=== PATIENT | female | born 1960 | race Caucasian/White ===

== ENCOUNTER 2016-07-10 15:41 | Inpatient (IN) | payer BC ==
--- NOTE | 2016-07-10 16:48 | PDOC ---
History of Present Illness - General Chief Complaint: Hemoptysis Stated Complaint: COUGHING BLOOD Time Seen by Provider: 07/10/16 16:14 History Source: Patient Exam Limitations: No Limitations - History of Present Illness Initial Comments: 07/10/16 16:50 Patient is a 55 year old female with no PMHx who presents to the ED for hemoptysis that occurred today around 15:30 after work. Patient states she's had a lingering cough for the last 3-4 years but when she coughed this time she reports it was different and that it felt warm. When she looked at her napkin it was filled with blood. She reports the blood measured a quarter of a cup and it happened two more times. Patient states she had a fever five days ago and has been around sick contacts. Her son had cold symptoms, which resolved. 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 She denies any recent travel and reports her immunizations are up to date. Patient also reports she had a Chest x-ray done 4 years ago, which revealed a nodule and never followed up on. Her last PPD test was 20 years ago. Patient was born in [place] and moved to [place] in 1977. She denies shortness of breath, chest pain, palpitations She denies fever, chills, nausea, vomiting She denies headaches, dizziness, loss of consciousness She denies dysuria, frequency, hematuria PMHx: None PSHx: None Meds: None Allergies: NKDA Social: Works as a teacher in [employer]. Denies alcohol, drugs, and smoking. Lives with and two sons. Family history: Hepatitis- parents PCP: Dr. Lentz Past History - Past Medical History Allergies/Adverse Reactions: Allergies Allergy/AdvReac Type Severity Reaction Status Date / Time No Known Allergies Allergy Verified 07/10/16 15:55 Home Medications: Ambulatory Orders Cefuroxime Axetil [Ceftin -] 500 mg PO Q12H #10 tablet 07/13/16 Other medical history: denies - Immunization History Immunization Up to Date: Yes - Psycho/Social/Smoking Cessation Hx Anxiety: No Suicidal Ideation: No Smoking History: Never smoked Information on smoking cessation initiated: No Hx Alcohol Use: No Drug/Substance Use Hx: No Substance Use Type: None Review of Systems - Review of Systems Constitutional: No: Chills, Diaphoresis, Fever, Loss of Appetite, Night Sweats, Unintentional Wgt. Loss, Unexplained wgt Loss HEENTM: No: Blurred Vision, Double Vision, Nose Pain, Nose Congestion, Throat Pain, Throat Swelling Respiratory: Yes: Cough, Hemoptysis. No: Orthopnea, Shortness of Breath, SOB with Exertion, SOB at Rest, Wheezing Cardiac (ROS): No: Chest Pain, Edema, Irregular Heart Rate, Lightheadedness, Palpitations, Syncope, Chest Tightness ABD/GI: No: Blood Streaked Bowels, Constipated, Diarrhea, Nausea, Poor Fluid Intake, Rectal Bleeding, Vomiting, Indigestion, Abdominal cramping : No: Burning, Dysuria, Discharge, Frequency, Flank Pain, Hematuria Musculoskeletal: No: Back Pain, Joint Pain Integumentary: No: Bruising, Dryness, Erythema, Flushing Neurological: No: Headache, Numbness, Paresthesia, Tingling, Tremors, Weakness, Dizziness Endocrine: No: Excessive Sweating, Flushing, Intolerance to Cold, Intolerance to Heat Hematologic/Lymphatic: No: Anemia, Blood Clots, Easy Bleeding, Easy Bruising *Physical Exam - Vital Signs Last Vital Signs Temp Pulse Resp BP Pulse Ox 98.3 F 82 20 147/92 97 07/10/16 15:56 07/10/16 15:56 07/10/16 15:56 07/10/16 15:56 07/10/16 15:56 - Physical Exam General Appearance: Yes: Other (Awake, alert, oriented, and in no acute distress. Emotional and crying ) HEENT: positive: Normal ENT Inspection, Normal Voice, TMs Normal, Pharynx Normal. negative: Tonsillar Exudate, Tonsillar Erythema Neck: positive: Trachea midline, Normal Thyroid. negative: Carotid bruit, Lymphadenopathy (R), Lymphadenopathy (L) Respiratory/Chest: positive: Lungs Clear, Normal Breath Sounds Cardiovascular: positive: Regular Rhythm, Regular Rate, S1, S2 Gastrointestinal/Abdominal: positive: Normal Bowel Sounds, Soft. negative: Distended, Guarding, Rebound, Tenderness Musculoskeletal: positive: Normal Inspection, CVA Tenderness Extremity: positive: Normal Capillary Refill, Normal Inspection, Normal Range of Motion Integumentary: positive: Normal Color, Dry, Warm Neurologic: positive: Fully Oriented, Alert, Normal Mood/Affect, Normal Response , Motor Strength 5/5 Heart Score/ECG Review - ECG Impressions Comment:: 07/10/16 20:06 NSR @76 BPM, (+) incomplete right bundle branch block, (-) ST-T elevations ED Treatment Course - LABORATORY CBC & Chemistry Diagram: 07/11/16 08:30 07/11/16 08:30 - RADIOLOGY Radiology Studies Ordered: Category Date Time Status CHEST X-RAY PORTABLE* [RAD] Stat Radiology 07/10/16 16:46 Ordered Chest X-Ray Result: No Infiltrates Medical Decision Making - Medical Decision Making 07/10/16 16:55 Patient is a 55 year old female with no PMHx who presents to the ED complaining of three episodes of hemoptysis of about a quarter of a cup of blood that began today around 15:30. Differential Diagnosis include but not limited to Tuberculosis, Malignancy, PE, GI bleed, Sophie Garber tear. ED Course and Treatment: -CBC -CMP -Cardiac Profile with Troponin -Coagulation -Type and Screen -U/A -EKG -Chest x-ray -Pulmonology consult 07/10/16 19:14 -Chest x-ray negative -Labs wnl -Chest CTA ordered -Will sign off case to Dr. Camargo *DC/Admit/Observation/Transfer Diagnosis at time of Disposition: Hemoptysis Pneumonia Qualifiers: Pneumonia type: due to unspecified organism Laterality: right Lung location: middle lobe of lung Qualified Code(s): J18.9 - Pneumonia, unspecified organism - Discharge Dispostion Disposition: HOME Condition at time of disposition: Stable - Prescriptions
--- NOTE | 2016-07-10 16:53 | PDOC ---
Attending Attestation - Resident Resident Name: Catie Partidaeen - ED Attending Attestation I have performed the following: I have examined & evaluated the patient, The case was reviewed & discussed with the resident, I agree w/resident's findings & plan, Exceptions are as noted - HPI HPI: 07/10/16 16:51 55 year old female with no past medical history presents to the emergency department for 3 discrete episodes of hemoptysis that was bright red in color. The last 5 days, the patient reports having tactile fevers and coughing which he attributes as an upper respiratory infection secondary to her son being sick. Denies any recent travels. Denies prior history of pulmonary embolism or DVT. Denies unilateral calf swelling pain. Denies smoking history. Denies TB risk factors. Pt had a lung nodules on a chest xray years ago but did not follow up. - Physicial Exam PE: 07/10/16 16:52 GENERAL: Awake, alert, and fully oriented, in no acute distress. HEAD: No signs of trauma EYES: PERRLA, EOMI, sclera anicteric, conjunctiva clear ENT: Auricles normal inspection, hearing grossly normal, nares patent, oropharynx clear without exudates. NECK: Normal ROM, supple, no lymphadenopathy, JVD, or masses LUNGS: Breath sounds equal, clear to auscultation bilaterally. No wheezes, and no crackles HEART: Regular rate and rhythm, normal S1 and S2, no murmurs, rubs or gallops ABDOMEN: Soft, nontender, normoactive bowel sounds. No guarding, no rebound. No masses EXTREMITIES: Normal range of motion, no edema. No clubbing or cyanosis. No cords, erythema, or tenderness NEUROLOGICAL: Cranial nerves II through XII grossly intact. Normal speech, normal gait SKIN: Warm, Dry, normal turgor, no rashes or lesions noted. - Medical Decision Making 07/10/16 16:52 Differential includes URI, malignancy, pulmonary embolism, TB. Will need labs including coags. Chest xray, ECG. CTA to r/o PE. Case was discussed with Dr. Harrington, who will see patient in the morning. Admission to the hospital for further workup and for observation for further bleeding. 07/10/16 18:13 ECG 18:10 NSR 76, incomplete RBBB, no std/amelia, normal axis, normal axis, QTC 443 msec
[2016-07-10 17:37] LABS: URINE APPEARANCE CLEAR; URINE BILIRUBIN NEGATIVE (NEGATIVE); URINE BLOOD NEGATIVE (NEGATIVE); URINE COLOR YELLOW; URINE GLUCOSE (UA) NEGATIVE (NEGATIVE); URINE KETONE NEGATIVE (NEGATIVE); URINE NITRITE NEGATIVE (NEGATIVE); URINE PROTEIN NEGATIVE (NEGATIVE); URINE UROBILINOGEN NEGATIVE E.U./dl (0.2-1.0)
[2016-07-10 17:37] LABS: BASOPHIL 0.3 % (0-2.0); EOSINOPHIL 0.3 % (0-4.5); MCH 26.5 pg (25.7-33.7); MCHC 32.3 g/dl (32.0-36.0); MEAN PLT VOLUME 7.7 fl (7.5-11.1); NEUTROPHILS 57.3 % (42.8-82.8); PLATELET COUNT 322 K/MM3 (134-434); RDW 12.6 % (11.6-15.6); WHITE BLOOD COUNT 6.2 K/mm3 (4.0-10.0)
[2016-07-10 17:41] LABS: URINE LEUK ESTERASE TRACE (NEGATIVE)
[2016-07-10 17:43] LABS: URINE BACTERIA RARE /hpf (NONE SEEN); URINE MUCUS FEW; URINE RBC 1 /hpf (0-3); URINE WBC 11 /hpf (3-5)
[2016-07-10 17:49] LABS: INR 1.13 (0.82-1.09); PROTHROMBIN TIME (PATIENT) 12.5 SEC (9.98-11.88)
[2016-07-10 17:52] LABS: ACTIVATED PTT 36.2 SECONDS (26.9-34.4)
[2016-07-10 18:00] LABS: ANION GAP 11 (8-16); BILIRUBIN,TOTAL 0.5 mg/dL (0.2-1.0); CO2 26 mmol/L (21-32); CREATININE 0.7 mg/dL (0.55-1.02); GLUCOSE,RANDOM 84 mg/dL (74-106); SGOT/AST 17 U/L (15-37); SGPT/ALT 20 U/L (12-78); TOT PROT 7.7 g/dl (6.4-8.2)
[2016-07-10 18:02] LABS: ALK PHOS 69 U/L (45-117); TROPONIN I < 0.02 ng/ml (0.00-0.05)
[2016-07-10] MEDS ORDERED: AZITHROMYCIN IVPB 500 MG in DEXTROSE 5%-WATER - 250 ML IVPB ONE (22:05)
[2016-07-10] MEDS ORDERED: CEFTRIAXONE 1 GM in DEXTROSE 5%-WATER - 50 ML IVPB ONE (22:05)
[2016-07-10] MEDS ORDERED: AZITHROMYCIN IVPB 250 ML IVPB ONE (22:14)
[2016-07-10] MEDS ORDERED: CEFTRIAXONE 50 ML ONE (22:14)
--- NOTE | 2016-07-10 22:14 | PDOC ---
*Physical Exam - Vital Signs Last Vital Signs Temp Pulse Resp BP Pulse Ox 98.3 F 82 20 147/92 97 07/10/16 15:56 07/10/16 15:56 07/10/16 15:56 07/10/16 15:56 07/10/16 15:56 ED Treatment Course - LABORATORY CBC & Chemistry Diagram: 07/10/16 16:59 07/10/16 16:59 - ADDITIONAL ORDERS Additional order review: Laboratory Results 07/10/16 07/10/16 07/10/16 17:19 17:19 17:19 INR 1.13 PTT (Actin FS) 36.2 H Sodium Potassium Chloride Carbon Dioxide Anion Gap BUN Creatinine Creat Clearance w eGFR Random Glucose Calcium Total Bilirubin AST ALT Alkaline Phosphatase Creatine Kinase Troponin I Total Protein Albumin Urine Color Yellow Urine Appearance Clear Urine pH 5.0 Ur Specific [place] 1.018 Urine Protein Negative Urine Glucose (UA) Negative Urine Ketones Negative Urine Blood Negative Urine Nitrite Negative Urine Bilirubin Negative Urine Urobilinogen Negative Ur Leukocyte Esterase Trace H Urine RBC 1 Urine WBC 11 Ur Epithelial Cells Moderate Urine Bacteria Rare Urine Mucus Few Blood Type O POSITIVE Antibody Screen Negative 07/10/16 07/10/16 17:00 16:59 INR PTT (Actin FS) Sodium 143 Potassium 4.1 Chloride 106 Carbon Dioxide 26 Anion Gap 11 BUN 12 Creatinine 0.7 Creat Clearance w eGFR > 60 Random Glucose 84 Calcium 9.0 Total Bilirubin 0.5 AST 17 ALT 20 Alkaline Phosphatase 69 Creatine Kinase 62 Troponin I < 0.02 Total Protein 7.7 Albumin 4.0 Urine Color Urine Appearance Urine pH Ur Specific [place] Urine Protein Urine Glucose (UA) Urine Ketones Urine Blood Urine Nitrite Urine Bilirubin Urine Urobilinogen Ur Leukocyte Esterase Urine RBC Urine WBC Ur Epithelial Cells Urine Bacteria Urine Mucus Blood Type O POSITIVE Antibody Screen 07/10/16 16:59 RBC 4.39 MCV 82.0 MCHC 32.3 RDW 12.6 MPV 7.7 Neutrophils % 57.3 Lymphocytes % 35.3 Monocytes % 6.8 Eosinophils % 0.3 Basophils % 0.3 - RADIOLOGY Chest X-Ray Result: No Infiltrates Medical Decision Making - Medical Decision Making 07/10/16 22:14 Chest xray and labs reviewed. No acute findings. CT scan of chest shows NO PE but does show RML PNA. Noted to have 4.5 mm R sided lung nodule. Patient given copy of results and is aware to repeat chest imaging in 3 to 6 months for the nodule. Given the hemoptysis, I'm going to admit the patient for observation and to ensure she doesn't open up with more bleeding. Will give CAP coverage. Case discussed with Dr. Stallings who accepts the patient to med/surg. *DC/Admit/Observation/Transfer Diagnosis at time of Disposition: Hemoptysis Pneumonia Qualifiers: Pneumonia type: due to unspecified organism Laterality: right Lung location: middle lobe of lung Qualified Code(s): J18.9 - Pneumonia, unspecified organism - Discharge Dispostion Admit: Yes - Referrals Referrals: Farideh Lentz MD [Primary Care Provider] -
--- NOTE | 2016-07-10 22:34 | HP ---
<Nohemi Stallings - Last Filed: 07/10/16 22:34> Problem List - Problem (1) Hemoptysis Code(s): R04.2 - HEMOPTYSIS (2) Pneumonia Code(s): J18.9 - PNEUMONIA, UNSPECIFIED ORGANISM Qualifiers: Pneumonia type: due to unspecified organism Laterality: right Lung location: middle lobe of lung Qualified Code(s): J18.9 - Pneumonia, unspecified organism Visit type - Emergency Visit Emergency Visit: Yes Care time: The patient presented to the Emergency Department on the above date and was hospitalized for further evaluation of their emergent condition. - New Patient This patient is new to me today: Yes Date on this admission: 07/10/16 - Critical Care Critical Care patient: No <Michelle Fong - Last Filed: 07/11/16 02:24> CHIEF COMPLAINT: Hemoptysis PCP: Dr. Lentz HISTORY OF PRESENT ILLNESS: The patient is a 55 yo F who presented to the ED with hemoptysis that occurred today. The patient reports 4 bloody vomiting episodes prior to evaluation. Patient states she had a chronic cough for the past 3-4 years but when she coughed today she noticed blood. Recently, the patient reports to cold symptoms that resolved 5 days ago with fever. She admits to sick contacts (son and co- workers). Patient will be admitted for evaluation of community acquired pneumonia. PMHx- Sinusitis and post nasal drip. 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 Family History: Hepatitis Allergies No Known Allergies Allergy (Verified 07/10/16 15:55) HOME MEDICATIONS: Medication Instructions Recorded NK [No Known Home Medication] 07/10/16 REVIEW OF SYSTEMS CONSTITUTIONAL: Absent: fever, chills, diaphoresis, generalized weakness, malaise, loss of appetite, weight change HEENT: Absent: rhinorrhea, nasal congestion, throat pain, throat swelling, difficulty swallowing, mouth swelling, ear pain, eye pain, visual changes CARDIOVASCULAR: Absent: chest pain, syncope, palpitations, irregular heart rate, lightheadedness , peripheral edema RESPIRATORY: hemoptysis, cough Absent: shortness of breath, dyspnea with exertion, orthopnea, wheezing, stridor GASTROINTESTINAL: Absent: abdominal pain, abdominal distension, nausea, vomiting, diarrhea, constipation, melena, hematochezia GENITOURINARY: Absent: dysuria, frequency, urgency, hesitancy, hematuria, flank pain, genital pain MUSCULOSKELETAL: Absent: myalgia, arthralgia, joint swelling, back pain, neck pain SKIN: Absent: rash, itching, pallor HEMATOLOGIC/IMMUNOLOGIC: Absent: easy bleeding, easy bruising, lymphadenopathy, frequent infections ENDOCRINE: Absent: unexplained weight gain, unexplained weight loss, heat intolerance, cold intolerance NEUROLOGIC: Absent: headache, focal weakness or paresthesias, dizziness, unsteady gait, seizure, mental status changes, bladder or bowel incontinence PSYCHIATRIC: Absent: anxiety, depression, suicidal or homicidal ideation, hallucinations. PHYSICAL EXAMINATION Vital Signs - 24 hr 07/10/16 15:56 Temperature 98.3 F Pulse Rate 82 Respiratory 20 Rate Blood Pressure 147/92 O2 Sat by Pulse 97 Oximetry (%) GENERAL: Awake, alert, and fully oriented, in no acute distress. HEAD: Normal with no signs of trauma. EYES: Pupils equal, round and reactive to light, extraocular movements intact, sclera anicteric, conjunctiva clear. No lid lag. EARS, NOSE, THROAT: Ears normal, nares patent, oropharynx clear without exudates. Moist mucous membranes. NECK: Normal range of motion, supple with Mild L cervical lymphadenopathy, JVD, or masses. LUNGS: Breath sounds equal, clear to auscultation bilaterally. No wheezes, and no crackles. No accessory muscle use. HEART: Regular rate and rhythm, normal S1 and S2 without murmur, rub or gallop. ABDOMEN: Soft, nontender, not distended, normoactive bowel sounds, no guarding, no rebound, no masses. No hepatomegaly or splenomegaly. MUSCULOSKELETAL: Normal range of motion at all joints. No bony deformities or tenderness. No CVA tenderness. UPPER EXTREMITIES: 2+ pulses, warm, well-perfused. No cyanosis. No clubbing. Cap refill <2 seconds. No peripheral edema. LOWER EXTREMITIES: 2+ pulses, warm, well-perfused. No calf tenderness. No peripheral edema. NEUROLOGICAL: Cranial nerves II-XII intact. Normal speech. Gait not observed. PSYCHIATRIC: Cooperative. Good eye contact. Appropriate mood and affect. SKIN: Warm, dry, normal turgor, no rashes or lesions noted. Laboratory Results - last 24 hr 07/10/16 07/10/16 07/10/16 16:59 16:59 17:00 WBC 6.2 RBC 4.39 Hgb 11.6 Hct 36.0 MCV 82.0 MCHC 32.3 RDW 12.6 Plt Count 322 MPV 7.7 Neutrophils % 57.3 Lymphocytes % 35.3 Monocytes % 6.8 Eosinophils % 0.3 Basophils % 0.3 INR PTT (Actin FS) Sodium 143 Potassium 4.1 Chloride 106 Carbon Dioxide 26 Anion Gap 11 BUN 12 Creatinine 0.7 Creat Clearance w eGFR > 60 Random Glucose 84 Calcium 9.0 Total Bilirubin 0.5 AST 17 ALT 20 Alkaline Phosphatase 69 Creatine Kinase 62 Troponin I < 0.02 Total Protein 7.7 Albumin 4.0 Urine Color Urine Appearance Urine pH Ur Specific [place] Urine Protein Urine Glucose (UA) Urine Ketones Urine Blood Urine Nitrite Urine Bilirubin Urine Urobilinogen Ur Leukocyte Esterase Urine RBC Urine WBC Ur Epithelial Cells Urine Bacteria Urine Mucus Blood Type O POSITIVE Antibody Screen 07/10/16 07/10/16 07/10/16 17:19 17:19 17:19 WBC RBC Hgb Hct MCV MCHC RDW Plt Count MPV Neutrophils % Lymphocytes % Monocytes % Eosinophils % Basophils % INR 1.13 PTT (Actin FS) 36.2 H Sodium Potassium Chloride Carbon Dioxide Anion Gap BUN Creatinine Creat Clearance w eGFR Random Glucose Calcium Total Bilirubin AST ALT Alkaline Phosphatase Creatine Kinase Troponin I Total Protein Albumin Urine Color Yellow Urine Appearance Clear Urine pH 5.0 Ur Specific [place] 1.018 Urine Protein Negative Urine Glucose (UA) Negative Urine Ketones Negative Urine Blood Negative Urine Nitrite Negative Urine Bilirubin Negative Urine Urobilinogen Negative Ur Leukocyte Esterase Trace H Urine RBC 1 Urine WBC 11 Ur Epithelial Cells Moderate Urine Bacteria Rare Urine Mucus Few Blood Type O POSITIVE Antibody Screen Negative ASSESSMENT/PLAN: The patient is a 55 yo F with a PMHx of post nasal drip, sinusitis and will be admitted for evaluation of community acquired pneumonia. 1. ) CAPNA r/o Influenza - Get rapid IN A &B - Robitussin - Tylenol Q6 - Repeat CBC and BMP in the AM - Normal Saline 125 cc/hr 2.) COPD - Stable - Refer to pulmonology as outpatient 3.) 4.5 mm R upper lobe nodule on Chest CTA - Repeat CT Scan in 6-12 months Documentation prepared by Michelle Fong, acting as emergency medical technician basic for Nohemi Stallings MD.
[2016-07-10] MEDS ORDERED: ACETAMINOPHEN 325 MG TABLET (FP) PO PRN (22:36)
[2016-07-10] MEDS ORDERED: guaiFENesin 200 MG/10 ML 10 ML UNIT-DOSE CUPS PO PRN (22:38)
[2016-07-10] MEDS: SODIUM CHLORIDE 1,000 ML IV SCH (22:43)
[2016-07-11 04:47] VITALS: BMI 22.0
[2016-07-11 09:16] LABS: MCH 27.4 pg (25.7-33.7); MCHC 33.4 g/dl (32.0-36.0); MEAN CELL VOLUME 82.2 fl (80-96); MEAN PLT VOLUME 7.6 fl (7.5-11.1); PLATELET COUNT 254 K/MM3 (134-434); RDW 12.7 % (11.6-15.6); WHITE BLOOD COUNT 4.8 K/mm3 (4.0-10.0)
[2016-07-11 09:40] LABS: CALCIUM 8.6 mg/dL (8.5-10.1); CREATININE 0.7 mg/dL (0.55-1.02)
--- NOTE | 2016-07-11 13:34 | PN ---
Progress Note (short form) - Note Progress Note: PULMONARY CONSULTATION DICTATED 07/11/15 IMP HEMOPTYSIS RML PNEUMONIA BRONCHIECTASIS RUL NODULE PLAN IV ANTIBIOTICS SPUTUM CULTURE QUANTIFY HEMOPTYSIS F/U CHEST CT 4-6 WKS TO DOCUMENT RESOLUTION OF INFILTRATES DR CHRISTIANSEN Problem List - Problems (1) Hemoptysis Code(s): R04.2 - HEMOPTYSIS (2) Pneumonia Code(s): J18.9 - PNEUMONIA, UNSPECIFIED ORGANISM Qualifiers: Pneumonia type: due to unspecified organism Laterality: right Lung location: middle lobe of lung Qualified Code(s): J18.9 - Pneumonia, unspecified organism (3) Bronchiectasis Code(s): J47.9 - BRONCHIECTASIS, UNCOMPLICATED (4) Pulmonary nodule Code(s): R91.1 - SOLITARY PULMONARY NODULE
[2016-07-11] MEDS: AZITHROMYCIN IVPB 250 ML IVPB SCH (14:08)
--- NOTE | 2016-07-11 15:42 | CONS ---
PULMONARY CONSULTATION DATE OF CONSULTATION: 07/11/2016 REFERRING PHYSICIAN: HISTORY OF PRESENT ILLNESS: The patient is a 55-year-old white female without any significant past medical history, a non-smoker, who came to [facility] with a complaint of hemoptysis. The patient states that for approximately a week or so, she has been having intermittent fevers and coughing which she attributed to an upper respiratory tract infection. She did not seek medical attention. Yesterday, while on the train ride home from work, she had an episode of coughing. She states that during the episode, she felt senior clinical consultant the chest and coughed up about half a cup of bright red blood. She has had two other subsequent episodes, one while in the emergency room. She was admitted to the floor for further management. She had a CT scan of the chest performed which revealed no evidence of pulmonary emboli but showed a right upper lobe infiltrate with some bronchiectatic changes. She denies any history of pneumonia in the past although she states she had pertussis as a child. She denies any recent travel. There is no history of occupational exposure to chemicals or fumes. She denies any night sweats or weight loss. As stated before, she said she has had fever for the past week or so. She denies any previous history of hemoptysis. She is a non-smoker but does have a history of second-hand smoke exposure. There is no history of DVT or PE in the past. PAST MEDICAL HISTORY: Past medical history is otherwise unremarkable. PAST SURGICAL HISTORY: Benign. CURRENT MEDICATIONS: 1. Guaifenesin. 2. Saline. REVIEW OF SYSTEMS: Positive cough. Positive for hemoptysis. No chest pain, no palpitations. Positive fever. No chills. No GI complaints. PHYSICAL EXAM: General: The patient is a well-developed, well-nourished female, awake, alert, in no acute distress. Vital Signs: She is currently afebrile. Blood pressure is 111/66. Respiratory rate is 18. Heart rate is 67. HEENT: Head is normocephalic, atraumatic. Neck: Supple. Heart: Regular, S1, S2. Chest has a few crackles in the right mid-lung field. Abdomen: Soft. Bowel sounds positive. Extremities: No cyanosis or edema. LABS: WBC is 4.8, hemoglobin 10.8, hematocrit 32.3, platelet count 254,000. INR is 1.13, BUN 9, creatinine 0.7. RADIOGRAPHIC FINDINGS: Chest CT: There is no evidence of pulmonary emboli. There appear to be some bronchiectatic changes in the right middle lobe as well as some infiltrate in the right middle lobe. There is also a 4.5-mm nodule in the right upper lobe. IMPRESSION: 1. Pneumonia, right middle lobe. 2. Hemoptysis, most likely secondary to pneumonia. 3. Bronchiectasis. 4. Right upper lobe nodule. PLAN: 1. Broad-spectrum antibiotics. 2. Bronchodilator p.r.n. 3. Supplemental O2. 4. Sputum C & S. 5. Cold agglutinins. 6. Legionella antigen 7. Try to obtain the patient's old records to see if there is any change in the right upper lobe. 8. Also, follow up pulmonary nodule over the next 24 months to document stability. 9. Obtain followup chest CT in approximately 6 weeks to document resolution of infiltrates. MANOHAR CHRISTIANSEN M.D. [id number]
--- NOTE | 2016-07-11 16:34 | PN ---
Physical Exam: SUBJECTIVE: Patient seen and examined Patient is feeling better, with no acute distress. OBJECTIVE: Vital Signs Temperature 98.0 F 07/11/16 18:40 Pulse Rate 77 07/11/16 18:40 Respiratory Rate 18 07/11/16 10:00 Blood Pressure 108/69 07/11/16 18:40 O2 Sat by Pulse Oximetry (%) 98 07/11/16 10:00 GENERAL: The patient is awake, alert, and fully oriented, in no acute distress. HEAD: Normal with no signs of trauma. EYES: PERRL, extraocular movements intact, sclera anicteric, conjunctiva clear. No ptosis. ENT: Ears normal, nares patent, oropharynx clear without exudates, moist mucous membranes. NECK: Trachea midline, full range of motion, supple. LUNGS: Breath sounds equal, clear to auscultation bilaterally, no wheezes, no crackles, no accessory muscle use. HEART: Regular rate and rhythm, S1, S2 without murmur, rub or gallop. ABDOMEN: Soft, nontender, nondistended, normoactive bowel sounds, no guarding, no rebound, no hepatosplenomegaly, no masses. EXTREMITIES: 2+ pulses, warm, well-perfused, no edema. NEUROLOGICAL: Cranial nerves II through XII grossly intact. Normal speech, gait not observed. PSYCH: Normal mood, normal affect. SKIN: Warm, dry, normal turgor, no rashes or lesions noted CBCD WBC 4.8 K/mm3 (4.0-10.0) 07/11/16 08:30 RBC 3.93 M/mm3 (3.60-5.2) 07/11/16 08:30 Hgb 10.8 GM/dL (10.7-15.3) 07/11/16 08:30 Hct 32.3 % (32.4-45.2) L 07/11/16 08:30 MCV 82.2 fl (80-96) 07/11/16 08:30 MCHC 33.4 g/dl (32.0-36.0) 07/11/16 08:30 RDW 12.7 % (11.6-15.6) 07/11/16 08:30 Plt Count 254 K/MM3 (134-434) D 07/11/16 08:30 MPV 7.6 fl (7.5-11.1) 07/11/16 08:30 CMP Sodium 144 mmol/L (136-145) 07/11/16 08:30 Potassium 3.7 mmol/L (3.5-5.1) 07/11/16 08:30 Chloride 109 mmol/L (98-107) H 07/11/16 08:30 Carbon Dioxide 29 mmol/L (21-32) 07/11/16 08:30 Anion Gap 6 (8-16) L 07/11/16 08:30 BUN 9 mg/dL (7-18) D 07/11/16 08:30 Creatinine 0.7 mg/dL (0.55-1.02) 07/11/16 08:30 Creat Clearance w eGFR > 60 (>60) 07/10/16 16:59 Random Glucose 97 mg/dL (74-106) 07/11/16 08:30 Calcium 8.6 mg/dL (8.5-10.1) 07/11/16 08:30 Total Bilirubin 0.5 mg/dL (0.2-1.0) 07/10/16 16:59 AST 17 U/L (15-37) 07/10/16 16:59 ALT 20 U/L (12-78) 07/10/16 16:59 Alkaline Phosphatase 69 U/L (45-117) 07/10/16 16:59 Total Protein 7.7 g/dl (6.4-8.2) 07/10/16 16:59 Albumin 4.0 g/dl (3.4-5.0) 07/10/16 16:59 CARDIAC ENZYMES Creatine Kinase 62 IU/L (26-192) 07/10/16 16:59 Troponin I < 0.02 ng/ml (0.00-0.05) 07/10/16 16:59 Active Medications Generic Name Dose Route Start Last Admin Trade Name Freq PRN Reason Stop Dose Admin Acetaminophen 650 mg 07/10/16 22:36 Tylenol - PO Q6H PRN FEVER OR PAIN Guaifenesin 10 ml 07/10/16 22:38 07/11/16 02:13 Robitussin - PO 10 ml Q6H PRN Administration COUGH Sodium Chloride 1,000 mls @ 125 mls/hr 07/10/16 22:45 07/10/16 22:43 Normal Saline - IV 125 mls/hr ASDIR TAYLOR Administration Ceftriaxone Sodium 50 mls @ 100 mls/hr 07/11/16 13:45 Rocephin 1gm Ivpb (Pre-Docked) IVPB DAILY TAYLOR Azithromycin 250 mls @ 250 mls/hr 07/11/16 14:00 07/11/16 14:08 Zithromax 500mg Ivpb (Pre-Docked) IVPB 250 mls/hr DAILY TAYLOR Administration ASSESSMENT/PLAN: The patient is a 55 yo F with a PMHx of post nasal drip, sinusitis and will be admitted for evaluation of community acquired pneumonia. # Acute CAP , with negative Influenza AB, the rapid one , Robitussin prn, Tylenol Q6 - Repeat CBC and BMP in the AM , Normal Saline 125 cc/hr, ON IV Rocephin/ zithromax continue presented with Hemoptysis #COPD Stable will refer her to pulmonology as outpatient # 4.5 mm R upper lobe nodule on Chest CTA: Repeat CT Scan in 6-12 months DVT Px: early ambulations, SCDs. No heparin since presented with Hemoptysis Visit type - Emergency Visit Emergency Visit: Yes ED Registration Date: 07/10/16 Care time: The patient presented to the Emergency Department on the above date and was hospitalized for further evaluation of their emergent condition. - New Patient This patient is new to me today: Yes Date on this admission: 07/11/16 - Critical Care Critical Care patient: No
[2016-07-11] MEDS: CEFTRIAXONE 50 ML IVPB SCH (17:06)
[2016-07-11] MEDS: SODIUM CHLORIDE 1,000 ML IV SCH (21:39)
--- NOTE | 2016-07-11 23:41 | EKG ---
Test Reason : Blood Pressure : / mmHG Vent. Rate : 076 BPM Atrial Rate : 076 BPM P-R Int : 142 ms QRS Dur : 098 ms QT Int : 394 ms P-R-T Axes : 078 047 062 degrees QTc Int : 443 ms NORMAL SINUS RHYTHM INCOMPLETE RIGHT BUNDLE BRANCH BLOCK BORDERLINE ECG NO PREVIOUS ECGS AVAILABLE Confirmed by ANGELINA MEDELLIN MD ([id number]) on 07/11/2016 11:40:46 PM Referred By: Confirmed By:ANGELINA MEDELLIN MD
[2016-07-12] MEDS: CEFTRIAXONE 50 ML IVPB SCH (10:13)
[2016-07-12] MEDS: AZITHROMYCIN IVPB 250 ML IVPB SCH (10:13)
--- NOTE | 2016-07-12 10:50 | PN ---
Progress Note (short form) - Note Progress Note: Patient is comfortable , no further hemoptysis, tolerating diet with no acute distress. Vital Signs Temperature 97.8 F 07/12/16 05:32 Pulse Rate 60 07/12/16 05:32 Respiratory Rate 18 07/12/16 05:32 Blood Pressure 112/66 07/12/16 05:32 O2 Sat by Pulse Oximetry (%) 98 07/12/16 02:00 GENERAL: The patient is awake, alert, and fully oriented, in no acute distress. HEAD: Normal with no signs of trauma. EYES: PERRL, extraocular movements intact, sclera anicteric, conjunctiva clear. No ptosis. ENT: Ears normal, nares patent, oropharynx clear without exudates, moist mucous membranes. NECK: Trachea midline, full range of motion, supple. LUNGS: decreased breath sounds at the basis , no wheezes, no crackles, no accessory muscle use. HEART: Regular rate and rhythm, S1, S2 without murmur, rub or gallop. ABDOMEN: Soft, nontender, nondistended, normoactive bowel sounds, no guarding, no rebound, no hepatosplenomegaly, no masses. EXTREMITIES: 2+ pulses, warm, well-perfused, no edema. NEUROLOGICAL: Cranial nerves II through XII grossly intact. Normal speech, gait not observed. PSYCH: Normal mood, normal affect. SKIN: Warm, dry, normal turgor, no rashes or lesions noted CBCD WBC 4.8 K/mm3 (4.0-10.0) 07/11/16 08:30 RBC 3.93 M/mm3 (3.60-5.2) 07/11/16 08:30 Hgb 10.8 GM/dL (10.7-15.3) 07/11/16 08:30 Hct 32.3 % (32.4-45.2) L 07/11/16 08:30 MCV 82.2 fl (80-96) 07/11/16 08:30 MCHC 33.4 g/dl (32.0-36.0) 07/11/16 08:30 RDW 12.7 % (11.6-15.6) 07/11/16 08:30 Plt Count 254 K/MM3 (134-434) D 07/11/16 08:30 MPV 7.6 fl (7.5-11.1) 07/11/16 08:30 CMP Sodium 144 mmol/L (136-145) 07/11/16 08:30 Potassium 3.7 mmol/L (3.5-5.1) 07/11/16 08:30 Chloride 109 mmol/L (98-107) H 07/11/16 08:30 Carbon Dioxide 29 mmol/L (21-32) 07/11/16 08:30 Anion Gap 6 (8-16) L 07/11/16 08:30 BUN 9 mg/dL (7-18) D 07/11/16 08:30 Creatinine 0.7 mg/dL (0.55-1.02) 07/11/16 08:30 Creat Clearance w eGFR > 60 (>60) 07/10/16 16:59 Random Glucose 97 mg/dL (74-106) 07/11/16 08:30 Calcium 8.6 mg/dL (8.5-10.1) 07/11/16 08:30 Total Bilirubin 0.5 mg/dL (0.2-1.0) 07/10/16 16:59 AST 17 U/L (15-37) 07/10/16 16:59 ALT 20 U/L (12-78) 07/10/16 16:59 Alkaline Phosphatase 69 U/L (45-117) 07/10/16 16:59 Total Protein 7.7 g/dl (6.4-8.2) 07/10/16 16:59 Albumin 4.0 g/dl (3.4-5.0) 07/10/16 16:59 CARDIAC ENZYMES Creatine Kinase 62 IU/L (26-192) 07/10/16 16:59 Troponin I < 0.02 ng/ml (0.00-0.05) 07/10/16 16:59 Current Medications Generic Name Dose Route Start Last Admin Trade Name Freq PRN Reason Stop Dose Admin Acetaminophen 650 mg 07/10/16 22:36 Tylenol - PO Q6H PRN FEVER OR PAIN Guaifenesin 10 ml 07/10/16 22:38 07/11/16 02:13 Robitussin - PO 10 ml Q6H PRN Administration COUGH Sodium Chloride 1,000 mls @ 125 mls/hr 07/10/16 22:45 07/11/16 21:39 Normal Saline - IV 125 mls/hr ASDIR TAYLOR Administration Ceftriaxone Sodium 50 mls @ 100 mls/hr 07/11/16 13:45 07/12/16 10:13 Rocephin 1gm Ivpb (Pre-Docked) IVPB 100 mls/hr DAILY TAYLOR Administration Azithromycin 250 mls @ 250 mls/hr 07/11/16 14:00 07/12/16 10:13 Zithromax 500mg Ivpb (Pre-Docked) IVPB 250 mls/hr DAILY TAYLOR Administration Medication Instructions Recorded NK [No Known Home Medication] 07/10/16 Assessment and Plan: This patient is a 55 yo F with a PMHx of post nasal drip, sinusitis and will be admitted for evaluation of community acquired pneumonia. # Acute CAP on IV antibiotic Rocephin and zithromax ; one more day of IV antibiotic then will change to po in am and possibel discharge in am , with negative Influenza AB, the rapid one , Robitussin prn, Tylenol Q6 ,Normal Saline 125 cc/hr continue , presented with Hemoptysis. #COPD Stable will refer her to pulmonology as outpatient # 4.5 mm R upper lobe nodule on Chest CTA: Repeat CT Scan in 6-12 months; follow up with Pulmonary. DVT Px: early ambulations, SCDs. No heparin since presented with Hemoptysis Visit type - Emergency Visit Emergency Visit: Yes ED Registration Date: 07/11/16 Care time: The patient presented to the Emergency Department on the above date and was hospitalized for further evaluation of their emergent condition. - New Patient This patient is new to me today: No - Critical Care Critical Care patient: No - Discharge Referral Referred to [facility] Med P.C.: No
--- NOTE | 2016-07-12 11:29 | CONSULT ---
Consult - History of Present Illness History of Present Illness: 55 yo female admitted with hemoptysis. On CT scan noted to have an incidental 6mm RLP kidney stone. NO flank pain. No prior h/o nephrolithiasis - Past Medical History ...: No - Alcohol/Substance Use Hx Alcohol Use: No - Smoking History Smoking history: Never smoked Have you smoked in the past 12 months: No Home Medications - Allergies Allergies/Adverse Reactions: Allergies Allergy/AdvReac Type Severity Reaction Status Date / Time No Known Allergies Allergy Verified 07/10/16 15:55 - Home Medications Home Medications: Ambulatory Orders NK [No Known Home Medication] 07/10/16 Review of Systems - Review of Systems Genitourinary: denies: No Symptoms, Burning, Discharge, Dysuria, Flank Pain, Frequency, Hematuria, Incontinence, Lesions, Menses, Pain, Urgency, Vaginal Bleeding, Other Physical Exam- Vital Signs: Vital Signs Temperature 97.8 F 07/12/16 05:32 Pulse Rate 60 07/12/16 05:32 Respiratory Rate 18 07/12/16 05:32 Blood Pressure 112/66 07/12/16 05:32 O2 Sat by Pulse Oximetry (%) 98 07/12/16 02:00 Kidneys: Yes: WNL, Enlarged, Firm, Immobile, Mass, Mobile, Tenderness, Other. No: Flank Pain Left, FLank Pain Right Imaging - Results Cat Scan: Image Reviewed Problem List - Problems (1) Right kidney stone Assessment/Plan: Since asymptomatic, no intervention at this time. Outpt followup Code(s): N20.0 - CALCULUS OF KIDNEY
--- NOTE | 2016-07-12 14:23 | PN ---
Progress Note, Physician History of Present Illness: pulmonary alert,feeling better,-hemoptysis - Current Medication List Current Medications: Active Medications Acetaminophen (Tylenol -) 650 mg PO Q6H PRN PRN Reason: FEVER OR PAIN Guaifenesin (Robitussin -) 10 ml PO Q6H PRN PRN Reason: COUGH Last Admin: 07/11/16 02:13 Dose: 10 ml Sodium Chloride (Normal Saline -) 1,000 mls @ 125 mls/hr IV ASDIR [facility] Last Admin: 07/11/16 21:39 Dose: 125 mls/hr Ceftriaxone Sodium (Rocephin 1gm Ivpb (Pre-Docked)) 50 mls @ 100 mls/hr IVPB DAILY [facility] Last Admin: 07/12/16 10:13 Dose: 100 mls/hr Azithromycin (Zithromax 500mg Ivpb (Pre-Docked)) 250 mls @ 250 mls/hr IVPB DAILY [facility] Last Admin: 07/12/16 10:13 Dose: 250 mls/hr - Objective Vital Signs: Vital Signs Temperature 97.8 F 07/12/16 05:32 Pulse Rate 60 07/12/16 05:32 Respiratory Rate 18 07/12/16 05:32 Blood Pressure 112/66 07/12/16 05:32 O2 Sat by Pulse Oximetry (%) 98 07/12/16 02:00 Constitutional: Yes: Well Nourished, Calm Eyes: Yes: WNL HENT: Yes: WNL Neck: Yes: WNL Cardiovascular: Yes: Regular Rate and Rhythm, S1, S2 Respiratory: Yes: Rales (few crackles r) Gastrointestinal: Yes: Normal Bowel Sounds, Soft Extremities: Yes: WNL Edema: No Labs: INR, PTT INR 1.13 (0.82-1.09) 07/10/16 17:19 Problem List - Problems (1) Hemoptysis Code(s): R04.2 - HEMOPTYSIS (2) Pneumonia Code(s): J18.9 - PNEUMONIA, UNSPECIFIED ORGANISM Qualifiers: Pneumonia type: due to unspecified organism Laterality: right Lung location: middle lobe of lung Qualified Code(s): J18.9 - Pneumonia, unspecified organism (3) Bronchiectasis Code(s): J47.9 - BRONCHIECTASIS, UNCOMPLICATED (4) Pulmonary nodule Code(s): R91.1 - SOLITARY PULMONARY NODULE Assessment/Plan IMP HEMOPTYSIS improved RML PNEUMONIA BRONCHIECTASIS RUL NODULE PLAN CONTINUE ANTIBIOTICS SPUTUM CULTURE QUANTIFY HEMOPTYSIS F/U CHEST CT 4-6 WKS TO DOCUMENT RESOLUTION OF INFILTRATES DR CHRISTIANSEN Problem List - Problems (1) Hemoptysis Code(s): R04.2 - HEMOPTYSIS (2) Pneumonia Code(s): J18.9 - PNEUMONIA, UNSPECIFIED ORGANISM Qualifiers: Pneumonia type: due to unspecified organism Laterality: right Lung location: middle lobe of lung Qualified Code(s): J18.9 - Pneumonia, unspecified organism (3) Bronchiectasis Code(s): J47.9 - BRONCHIECTASIS, UNCOMPLICATED (4) Pulmonary nodule Code(s): R91.1 - SOLITARY PULMONARY NODULE
--- NOTE | 2016-07-13 09:21 | PN ---
Teaching Attending Note Name of Resident: Jeffrey Barron ATTENDING PHYSICIAN STATEMENT I saw and evaluated the patient. I reviewed the resident's note and discussed the case with the resident. I agree with the resident's findings and plan as documented. SUBJECTIVE: OBJECTIVE: Vital Signs Temperature 98.1 F 07/13/16 05:57 Pulse Rate 65 07/13/16 05:57 Respiratory Rate 18 07/13/16 05:57 Blood Pressure 121/82 07/13/16 05:57 O2 Sat by Pulse Oximetry (%) 98 07/12/16 20:03 CBCD WBC 4.8 K/mm3 (4.0-10.0) 07/11/16 08:30 RBC 3.93 M/mm3 (3.60-5.2) 07/11/16 08:30 Hgb 10.8 GM/dL (10.7-15.3) 07/11/16 08:30 Hct 32.3 % (32.4-45.2) L 07/11/16 08:30 MCV 82.2 fl (80-96) 07/11/16 08:30 MCHC 33.4 g/dl (32.0-36.0) 07/11/16 08:30 RDW 12.7 % (11.6-15.6) 07/11/16 08:30 Plt Count 254 K/MM3 (134-434) D 07/11/16 08:30 MPV 7.6 fl (7.5-11.1) 07/11/16 08:30 CMP Sodium 144 mmol/L (136-145) 07/11/16 08:30 Potassium 3.7 mmol/L (3.5-5.1) 07/11/16 08:30 Chloride 109 mmol/L (98-107) H 07/11/16 08:30 Carbon Dioxide 29 mmol/L (21-32) 07/11/16 08:30 Anion Gap 6 (8-16) L 07/11/16 08:30 BUN 9 mg/dL (7-18) D 07/11/16 08:30 Creatinine 0.7 mg/dL (0.55-1.02) 07/11/16 08:30 Creat Clearance w eGFR > 60 (>60) 07/10/16 16:59 Random Glucose 97 mg/dL (74-106) 07/11/16 08:30 Calcium 8.6 mg/dL (8.5-10.1) 07/11/16 08:30 Total Bilirubin 0.5 mg/dL (0.2-1.0) 07/10/16 16:59 AST 17 U/L (15-37) 07/10/16 16:59 ALT 20 U/L (12-78) 07/10/16 16:59 Alkaline Phosphatase 69 U/L (45-117) 07/10/16 16:59 Total Protein 7.7 g/dl (6.4-8.2) 07/10/16 16:59 Albumin 4.0 g/dl (3.4-5.0) 07/10/16 16:59 CARDIAC ENZYMES Creatine Kinase 62 IU/L (26-192) 07/10/16 16:59 Troponin I < 0.02 ng/ml (0.00-0.05) 07/10/16 16:59 Current Medications Generic Name Dose Route Start Last Admin Trade Name Freq PRN Reason Stop Dose Admin Acetaminophen 650 mg 07/10/16 22:36 Tylenol - PO Q6H PRN FEVER OR PAIN Guaifenesin 10 ml 07/10/16 22:38 07/11/16 02:13 Robitussin - PO 10 ml Q6H PRN Administration COUGH Levofloxacin 100 mls @ 100 mls/hr 07/13/16 10:00 Levaquin 500 Mg Premixed Ivpb - IVPB DAILY TAYLOR Medication Instructions Recorded Cefuroxime Axetil [Ceftin -] 500 mg PO Q12H #10 tablet 07/13/16 ASSESSMENT AND PLAN: This patient is a 55 yo F with a PMHx of post nasal drip, sinusitis and will be admitted for evaluation of community acquired pneumonia. # Acute CAP s/p antibiotic Rocephin and zithromax getting discharged on Ceftin po 500mg po bid #COPD Stable will refer her to pulmonology as outpatient # 4.5 mm R upper lobe nodule on Chest CTA: Repeat CT Scan in 6-12 months; follow up with Pulmonary. follow with within 4-[address] chest for follow up Follow with in 6 weeks for kidney stone
--- NOTE | 2016-07-13 09:30 | DS ---
Physical Exam: SUBJECTIVE: Patient seen and examined OBJECTIVE: Vital Signs Period Temp Pulse Resp BP Sys/Faria Pulse Ox Last 24 Hr 97.8 F-98.1 F 65-77 18-18 121-131/77-82 98 PHYSICAL EXAM GENERAL: The patient is awake, alert, and fully oriented, in no acute distress. HEAD: Normal with no signs of trauma. EYES: PERRL, extraocular movements intact, sclera anicteric, conjunctiva clear. No ptosis. ENT: Ears normal, nares patent, oropharynx clear without exudates, moist mucous membranes. NECK: Trachea midline, full range of motion, supple. LUNGS: decreased breath sounds at the basis , no wheezes, no crackles, no accessory muscle use. HEART: Regular rate and rhythm, S1, S2 without murmur, rub or gallop. ABDOMEN: Soft, nontender, nondistended, normoactive bowel sounds, no guarding, no rebound, no hepatosplenomegaly, no masses. EXTREMITIES: 2+ pulses, warm, well-perfused, no edema. NEUROLOGICAL: Cranial nerves II through XII grossly intact. Normal speech, gait not observed. PSYCH: Normal mood, normal affect. SKIN: Warm, dry, normal turgor, no rashes or lesions noted LABS Laboratory Results - last 24 hr 07/12/16 23:25 Stool Occult Blood Negative CBCD WBC 4.8 K/mm3 (4.0-10.0) 07/11/16 08:30 RBC 3.93 M/mm3 (3.60-5.2) 07/11/16 08:30 Hgb 10.8 GM/dL (10.7-15.3) 07/11/16 08:30 Hct 32.3 % (32.4-45.2) L 07/11/16 08:30 MCV 82.2 fl (80-96) 07/11/16 08:30 MCHC 33.4 g/dl (32.0-36.0) 07/11/16 08:30 RDW 12.7 % (11.6-15.6) 07/11/16 08:30 Plt Count 254 K/MM3 (134-434) D 07/11/16 08:30 MPV 7.6 fl (7.5-11.1) 07/11/16 08:30 CMP Sodium 144 mmol/L (136-145) 07/11/16 08:30 Potassium 3.7 mmol/L (3.5-5.1) 07/11/16 08:30 Chloride 109 mmol/L (98-107) H 07/11/16 08:30 Carbon Dioxide 29 mmol/L (21-32) 07/11/16 08:30 Anion Gap 6 (8-16) L 07/11/16 08:30 BUN 9 mg/dL (7-18) D 07/11/16 08:30 Creatinine 0.7 mg/dL (0.55-1.02) 07/11/16 08:30 Creat Clearance w eGFR > 60 (>60) 07/10/16 16:59 Random Glucose 97 mg/dL (74-106) 07/11/16 08:30 Calcium 8.6 mg/dL (8.5-10.1) 07/11/16 08:30 Total Bilirubin 0.5 mg/dL (0.2-1.0) 07/10/16 16:59 AST 17 U/L (15-37) 07/10/16 16:59 ALT 20 U/L (12-78) 07/10/16 16:59 Alkaline Phosphatase 69 U/L (45-117) 07/10/16 16:59 Total Protein 7.7 g/dl (6.4-8.2) 07/10/16 16:59 Albumin 4.0 g/dl (3.4-5.0) 07/10/16 16:59 CARDIAC ENZYMES Creatine Kinase 62 IU/L (26-192) 07/10/16 16:59 Troponin I < 0.02 ng/ml (0.00-0.05) 07/10/16 16:59 Microbiology 07/11/16 01:06 Nasopharyngeal Swab Respiratory Virus Panel - Preliminary 07/10/16 21:45 Blood - Peripheral Venous Blood Culture - Preliminary NO GROWTH OBTAINED AFTER 48 HOURS, INCUBATION TO CONTINUE FOR 3 DAYS. 07/10/16 21:45 Blood - Peripheral Venous Blood Culture - Preliminary NO GROWTH OBTAINED AFTER 48 HOURS, INCUBATION TO CONTINUE FOR [address] chest: Impression: There is no evidence of a pulmonary embolus in the main pulmonary artery and its proximal branches , bilaterally. Mild lung emphysema/ COPD with interstitial thickening, fine nodularity and mild bronchiectatic changes in the right middle lobe suggestive of infiltrates. Follow-up CT scan of the chest in a couple of weeks is recommended to assess for clearing infiltrates There is a 4.5 mm nodule in the right upper lobe abutting the fissure on axial image 50 which is nonspecific. A follow-up CT scan of the chest in 6-12 months is needed. 6 mm nonobstructing right renal lower pole stone HOSPITAL COURSE: Patient is a 55 year old female with no PMHx who presents to the ED for hemoptysis that occurred today around 15:30 after work. Patient states she's had a lingering cough for the last 3-4 years but when she coughed this time she reports it was different and that it felt warm. When she looked at her napkin it was filled with blood. Patient states she had a fever five days ago and has been around sick contacts. Her son had cold symptoms, which resolved. 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 She denies any recent travel and reports her immunizations are up to date. Examaination and investigations were done patient diagnosed with Acute community acyuired pneumonia started on IV antibiotic Rocephin and zithromax ( recieved for 4 days ) , with negative Influenza AB, the rapid one. Slowly condition of patient improved cough decreased no more haemoptysis. Today patient feel better denies sob, cough, fever. Patient discharged in stable condition. Advice Follow up with your pcp Follow up with Dr harrington, need F/U CHEST CT 4-6 WKS TO DOCUMENT RESOLUTION OF INFILTRATES You have nodule in your lung for which you need regular follow up with assembly manager for further work up and follow up CT scans Follow up with Dr Pittman for renal stone Take ceftin twice a day for 5 days If develop nausea, vomiting, chest pain, shortness of breath contact doctor or come to hospital. Date of Admission:07/11/16 Date of Discharge: 07/13/16 Minutes to complete discharge: 45 Discharge Summary Reason For Visit: PNEUMONIA/ HEMOPTYSIS Current Active Problems Bronchiectasis (Acute) Hemoptysis (Acute) Pneumonia (Acute) Pulmonary nodule (Acute) Right kidney stone (Acute) Condition: Stable - Instructions Diet, Activity, Other Instructions: Follow up with your pcp Follow up with Dr harrington need F/U CHEST CT 4-6 WKS TO DOCUMENT RESOLUTION OF INFILTRATES You have nodule in your lung for which you need regular follow up with assembly manager for further work up and follow up CT scans Follow up with Dr Pittman for renal stone Take ceftin twice a day for 5 days If develop nausea, vomiting, chest pain, shortness of breath contact doctor or come to hospital. Referrals: Arnie Harrington MD [Staff Physician] - 1 Week Dwayne Isaac MD [Staff Physician] - 1 Week Farideh Lentz MD [Primary Care Provider] - 1 Week Disposition: HOME - Home Medications Comprehensive Discharge Medication List: Ambulatory Orders Cefuroxime Axetil [Ceftin -] 500 mg PO Q12H #10 tablet 07/13/16 This patient is new to me today: Yes Date on this admission: 07/13/16 Emergency Visit: Yes ED Registration Date: 07/11/16 Care time: The patient presented to the Emergency Department on the above date and was hospitalized for further evaluation of their emergent condition. Critical Care patient: No - Discharge Referral Referred to [facility] Med P.C.: No
[2016-07-13] MEDS ORDERED: LEVOFLOXACIN 500 MG IVPB 100 ML IVPB SCH (10:00)
[2016-07-13 11:10] VITALS: BP 135/84; PULSE 68; TEMP 98.2
== END 2016-07-13 12:36 | disposition home or self-care (01) | DRG 194 ==
LOC: JER 15:41 → JERBED 22:36 → J6S 07-11 01:51 → OBSVTOIN 07-11 16:30
PROVIDERS: ADMIT Internal Medicine; ATTEND Internal Medicine
DX: J18.9 Pneumonia, unspecified organism (principal); R04.2 Hemoptysis; R91.1 Solitary pulmonary nodule; J47.9 Bronchiectasis, uncomplicated; N20.0 Calculus of kidney
CPT/HCPCS: 36415; 71020-TC; 71275-TC; 80048; 80053; 81003; 81015; 82272; 82550; 84484; 85025; 85027; 85610; 85730; 86850; 86900; 86901; 87040; 87254; 87804; 93005; 93010; 99283-25; G0378